=== PATIENT | male | born 1970 | race Caucasian/White ===

== ENCOUNTER 2024-01-25 13:11 | Emergency (ER) | payer MEDICAID ==
[~2024-01-25] VITALS: Ht 185.4 cm; Wt 119.3 kg
[2024-01-25] MEDS: ketorolac trometh 15mg/ml vial 15 MG/ML ML IM ONE (13:48)
[2024-01-25] MEDS ORDERED: HYDR-3965 PO (14:15)
[2024-01-25] MEDS ORDERED: IBUP-864 PO (14:15)
[2024-01-25 14:24] VITALS: BP 189/78; PULSE 79; RESP 16; TEMP 98; O2SAT 98
== END 2024-01-25 14:25 | disposition home or self-care (01) ==
LOC: ER 13:13
DX: S80.02XA Contusion of left knee, initial encounter (principal); W22.03XA Walked into furniture, initial encounter; Y93.89 Activity, other specified; Y92.89 Other specified places as the place of occurrence of the external cause; Y99.8 Other external cause status
CPT/HCPCS: 73564; 96372; 99283; J1885

== ENCOUNTER 2024-01-30 16:18 | Emergency (ER) | payer MEDICAID ==
[~2024-01-30] VITALS: Ht 182.9 cm; Wt 117.3 kg
[~2024-01-30 16:18] MED LIST: HYDR-3965 PO; IBUP-864 PO
[2024-01-30 16:52] VITALS: BP 155/97; PULSE 95; TEMP 98.2; O2SAT 99
[2024-01-30 18:45] LABS: BASOPHILS # (AUTO) 0.1 X10'3 (0-0.2); BASOPHILS % (AUTO) 1.4 % (0-1); EOSINOPHILS # (AUTO) 0.3 X10'3 (0-0.9); EOSINOPHILS % (AUTO) 2.6 % (0-6); HEMATOCRIT 42.3 % (42.0-52.0); HEMOGLOBIN 14.7 g/dl (14.0-17.9); LYMPHOCYTES # (AUTO) 1.6 X10'3 (1.1-4.8); LYMPHOCYTES % (AUTO) 15.9 % (21-51); MEAN CORPUSCULAR HEMOGLOBIN 33.9 PG (27.0-31.0); MEAN CORPUSCULAR HGB CONC 34.9 g/dL (33.0-36.5); MEAN CORPUSCULAR VOLUME 97.3 FL (78-98); MONOCYTES # (AUTO) 1.1 X10'3 (0-0.9); MONOCYTES % (AUTO) 10.9 % (2-12); NEUTROPHILS # (AUTO) 6.8 X10'3 (1.8-7.7); NEUTROPHILS % (AUTO) 69.2 % (42-75); PLATELET COUNT 312 X10'3 (140-440); RED BLOOD COUNT 4.34 X10'6 (4.70-6.10); RED CELL DISTRIBUTION WIDTH 12.5 % (11.5-14.5); WHITE BLOOD COUNT 9.8 X10'3 (4.5-11.0)
[2024-01-30] MEDS: ketorolac trometh 30MG/ML vial 30 MG/ML VIAL IM STA (18:45)
[2024-01-30] MEDS: oxyCODONE IR 5mg (immed. release) tablet PO STA (18:46)
[2024-01-30 19:00] LABS: D-DIMER 0.97 MG/L FEU (0-0.50)
[2024-01-30 19:15] LABS: ALANINE AMINOTRANSFERASE 50 U/L (12-78); ALBUMIN/GLOBULIN RATIO 0.9 (1.1-1.5); ALKALINE PHOSPHATASE 97 IU/L (46-116); ANION GAP 6 (8-16); ASPARTATE AMINO TRANSFERASE 31 U/L (10-37); BILIRUBIN,TOTAL 0.7 MG/DL (0.1-1.0); BLOOD UREA NITROGEN 18 MG/DL (7-18); BUN/CREATININE RATIO 14.6 (10.0-20.0); CALCIUM 9.3 MG/DL (8.5-10.1); CHLORIDE 101 MMOL/L (99-107); CREATININE 1.23 MG/DL (0.60-1.10); GLUCOSE 96 MG/DL (70-104); POTASSIUM 4.7 MMOL/L (3.5-5.1); SODIUM 138 MMOL/L (135-145); TOTAL PROTEIN 8.6 G/DL (6.4-8.2); URIC ACID 9.6 MG/DL (3.5-7.2); eCRCL 75 ML/MIN; eGFR 61 ML/MIN
[2024-01-30] MEDS ORDERED: INDO50CA96 PO (19:51)
[2024-01-30] MEDS ORDERED: FURO-150 PO (19:51)
[2024-01-30 20:13] VITALS: RESP 16
== END 2024-01-30 20:14 | disposition home or self-care (01) ==
LOC: ER 16:19
DX: S80.02XA Contusion of left knee, initial encounter (principal); R60.9 Edema, unspecified; M10.9 Gout, unspecified; M79.662 Pain in left lower leg; Z79.1 Long term (current) use of non-steroidal anti-inflammatories (NSAID); Z79.899 Other long term (current) drug therapy; X58.XXXA Exposure to other specified factors, initial encounter; Y93.01 Activity, walking, marching and hiking; Y92.89 Other specified places as the place of occurrence of the external cause; Y99.8 Other external cause status
CPT/HCPCS: 36415; 73590; 80053; 84550; 85025; 85379; 93971; 96372; 99285; J1885

== ENCOUNTER 2024-07-29 15:54 | Emergency (ER) | payer MEDICAID ==
[~2024-07-29] VITALS: Ht 182.9 cm; Wt 117.7 kg
[~2024-07-29 15:54] MED LIST changes: +FURO-150 PO; -HYDR-3965 PO; +INDO50CA96 PO
--- NOTE | 2024-07-29 16:29 | Physician Documentation ---
History of Present Illness ~ Chief Complaint: Elbow pain Stated Complaint: R ELBOW PAIN Time Seen by MD: 19:00 HPI Patient presents to the emergency room for evaluation of left elbow pain onset three days ago. Patient has history of gout. He denies any traumas or unusual activities. He has taken ibuprofen and Tylenol with limited benefit. He does have a primary care doctor but denies taking any colchicine or allopurinol for gout. No fevers Tetanus within 5 years: Yes Medication Reconciliation Allergies: Coded Allergies: No Known Allergies (Unverified , 01/30/24) Scheduled Furosemide (Lasix), 1 TAB PO DAILY Ibuprofen (Ibu), 1 TAB PO Q8H Indomethacin (Indomethacin), 1 CAP PO Q8H Review of Systems ROS All review of systems negative except as per HPI Physical Exam Vital Signs: Heart Rate: 118, Respiratory Rate: 18, BP: 142/94, Pulse Oximetry: 96, Weight: 117.730 Oxygen Flow Rate: 0 Physical Exam General: Patient is awake, alert, oriented x4 in no acute distress Head: Normocephalic and atraumatic. Eyes: Conjunctival normal. EOMI. PERRL. ENT: Mucous membranes moist. Neck: Supple, trachea is midline. Chest: Clear to auscultation bilaterally without rales, rhonchi, or wheezes. There is no accessory muscle use or retractions. Cardiac: Heart rate 108 and regular without murmurs, gallops, or rubs. Extremities: Right upper extremity normal, left upper extremity with swollen warm left elbow able to flex and extend however decreased range of motion secondary to pain. Progress Results/Orders Results/Orders Orders - TOMAS TEJEDA MD Triamcinolone Acet 40mg/Ml Inj (Kenalog- (07/29/24 19:25) Ketorolac Trometh 15mg/Ml Vial (Toradol (07/29/24 19:25) Hydrocodone/Apap 5/325mg Tab ([place] 5/32 (07/29/24 19:25) Vital Signs 07/29/24 07/29/24 16:05 18:30 Pulse 118 110 Resp 18 15 B/P (MAP) 142/94 130/88 (102) Pulse Ox 96 95 O2 Flow Rate 0 0 Laboratory Tests Test 07/29/24 16:50 Uric Acid 8.1 H Medical Decision Making Findings Patient presents to the emergency room with elbow pain as per HPI. Differentials include but are not limited to cellulitis, arthritis, gout, septic arthritis. Given patient's history and physical exam I believe patient is suffering from gout flare and we will treat as such. The need to follow up with his doctor for possible allopurinol also discussed. X-ray is reassuring and uric acid levels are elevated. Departure Disposition: 01 HOME / SELF CARE / HOMELESS Impression: Primary Impression: Gout attack Condition: Stable Discharge Instructions: Gout, [id number] Additional Instructions: Drank copious amounts of water to dilute your system. Follow up with your doctor for consideration allopurinol medication to help decrease symptom frequency. Do not take ibuprofen while taking indomethacin. You may take Tylenol keeping mind that has 325 mg in your [place] and not to go over 1000 mg of Tylenol every 6 hours. Referrals: NO PRIMARY CARE PROVIDER (PCP) Prescriptions Indomethacin (Indomethacin) 50 Mg Capsule 1 CAP PO Q8H for arthritis for 10 Days, #30 CAP 0 Refills with food Prov: TOMAS TEJEDA MD 07/29/24 Colchicine (Colchicine) 0.6 Mg Capsule 1.2 CAP PO ONCE, #3 CAP 0 Refills Take two tablets once, then the last tablet one hour later. Prov: TOMAS TEJEDA MD 07/29/24 Hydrocodone Bit/Acetaminophen 5/325 MG ([place] 5/325 MG) 5 Mg/325 Mg Tablet 1-2 TAB PO Q4-6 hours PRN for pain, #20 TAB Prov: TOMAS TEJEDA MD 07/29/24 Prednisone* (Prednisone*) 20 Mg Tablet 1 TAB PO Q12H for 5 Days, #10 TAB Prov: TOMAS TEJEDA MD 07/29/24 Education Educated: Patient Educated regarding: diagnosis, treatment, need for follow up Additional Comment Medical Screen Exam History: This is a 54-year-old male with a history of gout who presents with three days of posterior left elbow pain, redness, and swelling. Patient reports no fevers and reports no pain to the anterior aspect of his arm, patient is able to move the arm without pain partially through range of motion though range of motion is limited at full extension or full flexion due to pain in posterior elbow. Exam: VITALS: Reviewed and as above. GENERAL: Alert, nontoxic appearing, no apparent distress. RESPIRATORY: No increased work of breathing, no respiratory distress, speaking in full clear sentences MUSCULOSKELETAL: Left elbow tender to palpation to posterior aspect though without pain out of proportion to exam, nontender to palpation to anterior and lateral aspects, no pain with passive range of motion SKIN: Skin of posterior elbow erythematous with mild swelling, no induration, no fluctuance, not hot to the touch MSE performed in triage and patient returned to ED lobby by nursing staff The note accurately reflects work and decisions made by me.WILMAR La 07/29/24 16:29 Signature Scribe Signature: No scribe Attestation: The note accurately reflects work and decisions made by me.Tomas Tejeda MD 07/29/24 19:38 SYMONE MICHELLE Jul 29, 2024 16:29 TOMAS TEJEDA MD Jul 29, 2024 19:30
--- NOTE | 2024-07-29 16:33 | RADIOLOGY REPORT ---
CLINICAL INDICATION: ELBOW PAIN LEFT TECHNIQUE: 4 views left elbow DI ELBOW, COMPLETE (3VW MIN) Comparison: None FINDINGS/IMPRESSION: : There is no evidence of acute fracture or dislocation. Soft tissues are unremarkable.
[2024-07-29] MEDS: ondansetron 4mg rapidly disintigrating tab PO ONE (19:29)
[2024-07-29] MEDS ORDERED: HYDR-3965 PO (19:37)
[2024-07-29] MEDS ORDERED: INDO50CA96 PO (19:37)
[2024-07-29] MEDS ORDERED: PRED20TA PO (19:37)
[2024-07-29] MEDS ORDERED: COLC0.6C3 PO (19:37)
[2024-07-29] MEDS: HYDROcodone/acetaminophen 5mg/325mg tablet PO ONE (19:47)
[2024-07-29] MEDS: triamcinolone acetonide 40mg/ml inj IM ONE (19:48)
[2024-07-29] MEDS: ketorolac trometh 15mg/ml vial 15 MG/ML ML IM ONE (19:52)
[2024-07-29 19:57] VITALS: BP 135/87; PULSE 107; RESP 13; O2SAT 98
== END 2024-07-29 19:59 | disposition home or self-care (01) ==
LOC: ER 15:54
DX: M10.9 Gout, unspecified (principal); M25.522 Pain in left elbow
CPT/HCPCS: 36415; 73080; 84550; 96372; 99284; J1885; J3301